=== PATIENT | male | born 1965 | race Caucasian/White ===

== ENCOUNTER 2017-02-19 04:55 | Emergency (ER) | payer OTHER ==
[~2017-02-19] VITALS: Ht 177.8 cm; Wt 72.6 kg
[2017-02-19 05:07] VITALS: BP 139/74
--- NOTE | 2017-02-19 05:07 | ED EYE COMPLAINT ---
History of Present Illness General Chief Complaint: Eye Problems Stated Complaint: LEFT EYE PAIN Source: patient Exam Limitations: no limitations Vital Signs & Intake/Output Vital Signs & Intake/Output Vital Signs Date Time Temp Pulse Resp B/P B/P Pulse O2 O2 Flow FiO2 Mean Ox Delivery Rate 02/19 0509 Room Air 02/19 0507 96.8 71 18 139/74 98 Room Air Allergies Coded Allergies: MDX - Contrast Media, Iodine Relate (Contrast Media, Iodine Related) (UNKNOWN ) MDX - Morphine (MORPHINE) (HIVES 07/30/12) Reconcile Medications Gentamicin Sulfate 0.3 % DROPS 2 GTT OPH 4 TIMES/DAY eye infection x 7 days Triage Nurses Notes Reviewed? yes Onset: Gradual Duration: hour(s): Timing: recent history Injury Environment: home Severity: moderate Modifying Factors: Worsens With: other ("feels like gravel w/closing). Left Eye Associated Symptoms: "feels like gravel when I close my eye." Right Eye Associated Symptoms: normal HPI: 51 yo gentleman presents with left eye burning discomfort. He states, "I think I got something in my eye yesterday evening... I touched my face with a rag and maybe some dust got in my eye... I was fine, but when I woke up this morning, my left eye really hurt and was burning.... I felt gravel when I closed my eye." He notes no vision changes. He is otherwise well. Past History Travel History Traveled to [place] past 21 day No Medical History Any Pertinent Medical History? see below for history Surgical History Surgical History: none Psychosocial History Who do you live with Family Services at Home None What is your primary language Barb[place] Family History Hx Contributory? No Review of Systems Review of Systems Constitutional: Reports: no symptoms. Eyes: Reports: no symptoms. Ear: Reports: no symptoms. Nose: Reports: no symptoms. Mouth: Reports: no symptoms. Throat: Reports: no symptoms. Respiratory: Reports: no symptoms. Cardiovascular: Reports: no symptoms. GI: Reports: no symptoms. Genitourinary: Reports: no symptoms. Musculoskeletal: Reports: no symptoms. Skin: Reports: no symptoms. Neurological/Psychological: Reports: no symptoms. Hematologic/Endocrine: Reports: no symptoms. Immunologic/Allergic: Reports: no symptoms. All Other Systems: Reviewed and Negative Physical Exam General Appearance: well developed/nourished, mild distress General Inspection: normal inspection Eyelid: normal inspection Conjunctiva/Sclera: injected, no FB visualized. Cornea: normal inspection EOM: intact Pupil: normal accommodation, normal pupil, PERRL General Inspection: normal inspection Physical Exam Head: atraumatic Nose: normal inspection Mouth/Throat: normal mouth inspection Neck: normal inspection, supple Skin: intact, normal color, warm/dry Progress Differential Diagnosis: corneal abrasion, corneal foreign body, conjunctivitis Plan of Care: pt feels better with tetracaine applied.... no visual field deficits/signs of glaucoma... pt home with gentamicin gtt.... encouraged follow up with optho. Departure Departure Disposition: HOME OR SELF CARE Condition: Stable Clinical Impression Primary Impression: Corneal abrasion, left Referrals: TR ORDAZ MD (PCP/Family) Departure Forms: Customer Survey General Discharge Information Prescriptions: Current Visit Scripts Gentamicin Sulfate 2 GTT OPH 4 TIMES/DAY #30 ML x 7 days
[2017-02-19] MEDS ORDERED: GENTAMICIN SULFA5 ML OPH (05:27)
== END 2017-02-19 05:33 ==
LOC: ERH 04:55
DX: S05.02XA Injury of conjunctiva and corneal abrasion without foreign body, left eye, initial encounter (principal); X58.XXXA Exposure to other specified factors, initial encounter; Y92.9 Unspecified place or not applicable; Y93.9 Activity, unspecified